=== PATIENT | female | born 1970 | race African-American/Black ===

== ENCOUNTER 2016-10-30 21:42 | Emergency (ER) | payer SELFPAY ==
[~2016-10-30] VITALS: Ht 162.6 cm; Wt 86.2 kg
[2016-10-30] MEDS ORDERED: NKM (21:55)
[2016-10-30 22:01] VITALS: BP 104/87
--- NOTE | 2016-10-30 22:12 | Emergency Room Report ---
History of Present Illness General Chief Complaint: Chest Pain Source: Patient Present Illness HPI This is a 45-year-old female with no past medical history. She presents with left-sided chest pain ongoing for last 2 days. Usually worse at night. Worse with movement. Worse with inspiration. No trauma. No shortness of breath. No diaphoresis. Also complaining of left arm numbness to his been ongoing for the whole day. Pain is 7/10 throbbing achy in nature. No trauma. Not on control. Allergies: Uncoded Allergies: adhesive tapes (Allergy, Unknown, 10/30/16) Patient History Past Medical History: see triage record, old chart reviewed Past Surgical History: none Pertinent Family History: none Social History: Denies: smoking Last Menstrual Period: 2 weeks ago Now: No Immunizations: other Reviewed Nursing Documentation: PMH: Agreed, PSxH: Agreed Nursing Documentation-PMH Past Medical History: No Stated History Review of Systems Eye: Denies: blurred vision, eye pain ENT: Denies: ear pain, nose congestion, throat swelling Respiratory: Denies: cough, shortness of breath Cardiovascular: Reports: chest pain, Denies: palpitations Gastrointestinal: Denies: abdominal pain, diarrhea, nausea, vomiting Musculoskeletal: Denies: back pain, joint pain Skin: Denies: rash Neurological: Denies: headache, numbness Endocrine: Denies: increased thirst, increased urine Hematologic/Lymphatic: Denies: easy bruising All Other Systems: negative except mentioned in HPI Physical Exam Vital Signs Date Time Temp Pulse Resp B/P Pulse Ox O2 Delivery O2 Flow Rate FiO2 10/30/16 21:52 98.1 92 20 104/87 97 Room Air vitals normal Medical Decision Making Diagnostic Impression: Primary Impression: Chest pain Qualified Codes: R07.9 - Chest pain, unspecified Additional Impressions: Costochondral chest pain UTI (urinary tract infection) Qualified Codes: N30.00 - Acute cystitis without hematuria ER Course Patient present with atypical chest pain. Does appear to be more costochondritis type of pain. No evidence of ACS, PE, dissection, pneumonia to name a few. We'll discharge home. EKG Diagnostic Results Rate: normal Rhythm: NSR ST Segments: no acute changes Rhythm Strip Diag. Results EP Interpretation: yes Rate: 92 Rhythm: NSR, no PVC's, no ectopy Chest X-Ray Diagnostic Results EP Interpretation: Yes Findings: no consolidation, no effusion, no pneumothorax, no acute cardiopulmonary disease Number of Views: 1 Last Vital Signs Date Time Temp Pulse Resp B/P Pulse Ox O2 Delivery O2 Flow Rate FiO2 10/30/16 21:52 98.1 92 20 104/87 97 Room Air Status: improved Disposition: HOME, SELF-CARE Condition: Stable Scripts Levofloxacin* (LEVAQUIN*) 500 Mg Tablet 500 MG ORAL DAILY, #7 TAB Prov: JEFF OH M.D. 10/30/16 Ibuprofen* (MOTRIN*) 600 Mg Tablet 600 MG ORAL THREE TIMES A DAY, #30 TAB 0 Refills Prov: JEFF OH M.D. 10/30/16 Additional Instructions: Followup with your Dr. in 7 days. Return if symptom worsen. JEFF OH M.D. Oct 30, 2016 22:12
[2016-10-30] MEDS ORDERED: Ketorolac 30mg Inj IV ONE (22:15)
[2016-10-30 22:23] LABS: BASOPHILS % (AUTO) 2.1 % (0.0-2.0); EOSINOPHILS % (AUTO) 5.9 % (0.0-3.0); LYMPHOCYTES % (AUTO) 41.9 % (20.0-45.0); MEAN CORPUSCULAR HEMOGLOBIN 28.9 PG (27.0-31.0); MEAN CORPUSCULAR HGB CONC 32.5 G/DL (32.0-36.0); MEAN CORPUSCULAR VOLUME 89 FL (80-99); MEAN PLATELET VOLUME 8.5 FL (6.5-10.1); NEUTROPHILS % (AUTO) 41.2 % (45.0-75.0); PLATELET COUNT 276 K/UL (150-450); RED BLOOD COUNT 4.76 M/UL (4.20-5.40); RED CELL DISTRIBUTION WIDTH 12.2 % (11.6-14.8)
[2016-10-30 22:30] LABS: TROPONIN I < 0.30 ng/mL (<=0.30)
[2016-10-30 22:34] LABS: ALANINE AMINOTRANSFERASE 15 U/L (3-33); ALBUMIN/GLOBULIN RATIO 1.2 (1.0-2.7); ANION GAP 12 (5-15); ASPARTATE AMINO TRANSFERASE 15 U/L (5-40); CALCIUM 9.6 mg/dL (8.6-10.2); CARBON DIOXIDE 28 mEQ/L (20-30); CHLORIDE 98 mEQ/L (98-107); CREATININE 0.9 mg/dL (0.5-0.9); GLOMERULAR FILTRATION RATE > 60 mL/min (>60); HEMOLYSIS 5; POTASSIUM 3.9 mEQ/L (3.4-4.9); SODIUM 138 mEQ/L (135-145); TOTAL PROTEIN 7.3 g/dL (6.6-8.7)
[2016-10-30 22:37] LABS: APPEARANCE,URINE CLEAR; KETONES,URINE NEGATIVE (NEGATIVE); LEUKOCYTE ESTERASE ,URINE 3+ (NEGATIVE); NITRITE,URINE NEGATIVE (NEGATIVE); PH,URINE 7 (4.5-8.0); PROTEIN,URINE NEGATIVE (NEGATIVE); UROBILINOGEN,URINE 1 MG/DL (0.0-1.0)
[2016-10-30 22:44] LABS: CKMB < 1.5 ng/mL (< 3.8)
[2016-10-30 22:46] LABS: BACTERIA,URINE MODERATE /HPF; SQUAMOUS EPITHELIAL CELL,UR FEW /LPF (NONE/OCC)
[2016-10-30] MEDS ORDERED: LEVAQUIN500 MG ORAL (22:55)
[2016-10-30] MEDS ORDERED: IBUPROFEN600 MG ORAL (22:55)
[2016-10-30 23:07] VITALS: BP 104/87
== END 2016-10-30 23:07 | disposition home or self-care (01) ==
LOC: EMR 22:13
DX: R07.89 Other chest pain (principal); N39.0 Urinary tract infection, site not specified
CPT/HCPCS: 36415; 71010; 80053; 81003; 81025; 82550; 82553; 84484; 85025; 85379; 87086; 93005; 96374; 99284; J1885

== ENCOUNTER 2017-01-05 17:17 | Emergency (ER) | payer SELFPAY ==
[~2017-01-05] VITALS: Ht 162.6 cm; Wt 90.7 kg
[~2017-01-05 17:17] MED LIST: IBUPROFEN600 MG ORAL; LEVAQUIN500 MG ORAL; NKM
[2017-01-05] MEDS ORDERED: Norco 5mg/325mg tab ORAL ONE (18:15)
[2017-01-05] MEDS ORDERED: IBUPROFEN600 MG ORAL (18:20)
[2017-01-05] MEDS ORDERED: ACETAMINOPHEN-1 EAC1 ORAL (18:20)
[2017-01-05 18:37] VITALS: BP 119/80
[2017-01-05 18:38] VITALS: BP 119/80
--- NOTE | 2017-01-05 21:57 | Emergency Room Report ---
History of Present Illness General Chief Complaint: Pain Source: Patient Present Illness HPI The patient is a 46-year-old female presenting for left-sided rib pain. She was seen in this emergency department for the same complaint recently and had x- rays which were unremarkable. She states that pain decreased with Motrin but then returned yesterday after sneezing. Pain is described as an 8/10 dull ache and does not radiate. Worse with movement and deep breaths. She denies other symptoms including nausea, vomiting, fever, chills, cough, hemoptysis, shortness of breath Allergies: Coded Allergies: No Known Allergies (Unverified , 01/05/17) Patient History Past Medical History: see triage record Pertinent Family History: none Last Menstrual Period: 7-20 Now: No Reviewed Nursing Documentation: PMH: Agreed, PSxH: Agreed Nursing Documentation-PMH Past Medical History: No Stated History Review of Systems All Other Systems: negative except mentioned in HPI Physical Exam Vital Signs Date Time Temp Pulse Resp B/P Pulse Ox O2 Delivery O2 Flow Rate FiO2 01/05/17 17:20 97.7 86 20 119/80 96 Room Air Sp02 EP Interpretation: reviewed, normal General Appearance: no apparent distress, alert, GCS 15, non-toxic Head: normocephalic, atraumatic Eyes: bilateral eye PERRL, bilateral eye normal inspection ENT: hearing grossly normal, normal pharynx, no angioedema, normal voice Neck: full range of motion, supple/symm/no masses Respiratory: chest non-tender, lungs clear, normal breath sounds, no accessory muscle use, speaking full sentences, other - TTP along the L lateral thoracic intercostal muscles Cardiovascular #1: regular rate, rhythm, no edema Musculoskeletal: back normal, gait/station normal, normal range of motion Neurologic: alert, oriented x3, responsive, motor strength/tone normal, sensory intact, speech normal Psychiatric: judgement/insight normal, memory normal, mood/affect normal, no suicidal/homicidal ideation Skin: normal color, no rash, warm/dry, well hydrated Medical Decision Making PA Attestation Dr. Katz is my supervising physician. Patient management was discussed with my supervising physician Diagnostic Impression: Primary Impression: Intercostal muscle strain Qualified Codes: S29.011A - Strain of muscle and tendon of front wall of thorax, initial encounter ER Course The patient is a 46-year-old female presenting for left-sided rib pain. Ddx considered include but not limited to sprain/strain, fracture, contusion, pneumothorax, among others Physical exam: No apparent distress. No respiratory distress Tenderness along the left lateral thoracic intercostal muscles. Symmetric inspiration and expiration.. Lungs are clear to auscultation bilaterally No new imaging is needed as the patient had recent rib series with no new injury The patient is discharged home with a prescription for pain medication and she will follow up with primary doctor. ER precautions given Last Vital Signs Date Time Temp Pulse Resp B/P Pulse Ox O2 Delivery O2 Flow Rate FiO2 01/05/17 18:38 97.7 79 20 119/80 96 Room Air Status: improved Disposition: HOME, SELF-CARE Condition: Improved Scripts Acetaminophen With Codeine (T#3) (TYLENOL #3 TAB*) Y Tab 1 TAB ORAL Q6HR Y for For Pain, #10 TAB Prov: CHERRIE CLAROS 01/05/17 Ibuprofen* (MOTRIN*) 600 Mg Tablet 600 MG ORAL Q8H Y for For Pain, #30 TAB 0 Refills Prov: CHERRIE CLAROS.A. 01/05/17 Referrals: NOT CHOSEN IPA/MD,REFERRING (PCP) Patient Instructions: Muscle Strain Additional Instructions: I discussed my findings with the patient. All questions and concerns have been answered. Treatment and medication compliance have been addressed. I advised the patient that they need to follow up with PMD in 3-5 days. Return to ED if symptoms worsen, new symptoms arise, or if needed for any reason. Patient verbalized understanding of discharge instructions. CHERRIE CLAROS Jan 05, 2017 21:57
== END 2017-01-05 18:38 | disposition home or self-care (01) ==
LOC: EMR 17:38
DX: S29.011A Strain of muscle and tendon of front wall of thorax, initial encounter (principal); X58.XXXA Exposure to other specified factors, initial encounter; Y92.89 Other specified places as the place of occurrence of the external cause
CPT/HCPCS: 99284

== ENCOUNTER 2017-03-16 17:55 | Emergency (ER) | payer SELFPAY ==
[~2017-03-16] VITALS: Ht 162.6 cm; Wt 90.7 kg
[~2017-03-16 17:55] MED LIST changes: +ACETAMINOPHEN-1 EAC1 ORAL
[2017-03-16] MEDS ORDERED: Methocarbamol 750mg tab ORAL ONE (19:45)
[2017-03-16] MEDS ORDERED: Ketorolac 60mg Inj IM ONE (19:45)
[2017-03-16] MEDS ORDERED: IBUPROFEN600 MG ORAL (20:39)
[2017-03-16] MEDS ORDERED: ROBAXIN-750750 MG PO (20:39)
[2017-03-16 20:50] VITALS: BP 142/75
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
== END 2017-03-16 20:50 | disposition home or self-care (01) ==
LOC: EMR 18:46
DX: S16.1XXA Strain of muscle, fascia and tendon at neck level, initial encounter (principal); V43.62XA Car passenger injured in collision with other type car in traffic accident, initial encounter; Y92.410 Unspecified street and highway as the place of occurrence of the external cause
CPT/HCPCS: 99283

== ENCOUNTER 2017-04-09 19:19 | Emergency (ER) | payer BC ==
[~2017-04-09] VITALS: Ht 162.6 cm; Wt 86.2 kg
[~2017-04-09 19:19] MED LIST changes: +ROBAXIN-750750 MG PO
[2017-04-09 20:10] LABS: APPEARANCE,URINE CLEAR; KETONES,URINE NEGATIVE (NEGATIVE); LEUKOCYTE ESTERASE ,URINE 3+ (NEGATIVE); NITRITE,URINE NEGATIVE (NEGATIVE); PH,URINE 5 (4.5-8.0); PROTEIN,URINE NEGATIVE (NEGATIVE); UROBILINOGEN,URINE NORMAL MG/DL (0.0-1.0)
[2017-04-09 20:51] LABS: BACTERIA,URINE MODERATE /HPF; SQUAMOUS EPITHELIAL CELL,UR FEW /LPF (NONE/OCC); TRICHOMONAS,URINE FEW /HPF
[2017-04-09] MEDS ORDERED: METRONIDAZOLE500 MG ORAL (21:03)
[2017-04-09] MEDS ORDERED: Lidocaine 1% MPF 10mg/ml 5ml INJ ONE (21:15)
[2017-04-09] MEDS ORDERED: Azithromycin 250mg tab ORAL ONE (21:15)
--- NOTE | 2017-04-09 21:17 | Emergency Room Report ---
History of Present Illness General Chief Complaint: Vaginal Source: Patient Present Illness HPI The patient is a 46-year-old female presenting for vaginal itching, pain, dysuria, and vaginal discharge since yesterday. Pain of the fourth and burning sensation to the vaginal area and occurs with urination or touch. No radiating pain. Discharge is described as clear to white. No odor. She denies any other symptoms including nausea, vomiting, fever, chills, abdominal pain, back pain Allergies: Coded Allergies: No Known Allergies (Unverified , 01/05/17) Patient History Past Medical History: see triage record Pertinent Family History: none Last Menstrual Period: 2 weeks ago Reviewed Nursing Documentation: PMH: Agreed, PSxH: Agreed Nursing Documentation-PMH Past Medical History: No Stated History Review of Systems All Other Systems: negative except mentioned in HPI Physical Exam Vital Signs Date Time Temp Pulse Resp B/P (MAP) Pulse Ox O2 Delivery O2 Flow Rate FiO2 04/09/17 19:38 98.2 92 16 131/95 95 Room Air Sp02 EP Interpretation: reviewed, normal General Appearance: no apparent distress, alert, GCS 15, non-toxic Head: normocephalic, atraumatic Eyes: bilateral eye normal inspection, bilateral eye PERRL ENT: hearing grossly normal, normal pharynx, no angioedema, normal voice Gastrointestinal: normal bowel sounds, non tender, soft, non-distended, no guarding, no rebound Genitourinary: normal inspection, no CVA tenderness Musculoskeletal: back normal, gait/station normal, normal range of motion, non- tender Neurologic: alert, oriented x3, responsive, motor strength/tone normal, sensory intact, speech normal Psychiatric: judgement/insight normal, memory normal, mood/affect normal, no suicidal/homicidal ideation Skin: normal color, no rash, warm/dry, well hydrated Medical Decision Making PA Attestation Dr. Hobbs is my supervising physician. Patient management was discussed with my supervising physician Diagnostic Impression: Primary Impression: Trichomonal infection ER Course The patient is a 46-year-old female presenting for vaginal itching, pain, dysuria, and vaginal discharge since yesterday. Differential diagnosis considered but not limited to: UTI, BV, yeast infection, pyelonephritis, PID, PE: Vitals WNL. NAD. Abdomen: Normal appearance. Non distended. No ecchymosis. Normal BS.Non tender. No McBurney point tenderness. No guarding. No CVA tenderness Urinalysis has + trich The patient is treated in the ER with azithromycin and Rocephin The patient discharged home with a prescription for flagyl and is given ER precautions. Laboratory Tests Test 04/09/17 19:47 Urine Color Yellow Urine Appearance Clear Urine pH 5 (4.5-8.0) Urine Specific [place]beau 1.025 (1.005-1.035) Urine Protein Negative (NEGATIVE) Urine Glucose (UA) Negative (NEGATIVE) Urine Ketones Negative (NEGATIVE) Urine Occult Blood 1+ (NEGATIVE) H Urine Nitrite Negative (NEGATIVE) Urine Bilirubin Negative (NEGATIVE) Urine Urobilinogen Normal MG/DL (0.0-1.0) Urine Leukocyte Esterase 3+ (NEGATIVE) H Urine RBC 2-4 /HPF (0 - 2) H Urine WBC 5-10 /HPF (0 - 2) H Urine Squamous Epithelial Cells Few /LPF (NONE/OCC) Urine Bacteria Moderate /HPF (NONE) H Urine Trichomonas Few /HPF (NONE) H Urine HCG, Qualitative Negative Lab Results Impression + Trich Last Vital Signs Date Time Temp Pulse Resp B/P (MAP) Pulse Ox O2 Delivery O2 Flow Rate FiO2 04/09/17 19:38 98.2 92 16 131/95 95 Room Air Status: improved Disposition: HOME, SELF-CARE Condition: Improved Scripts Metronidazole* (FLAGYL*) 500 Mg Tablet 500 MG ORAL BID, #14 TAB 0 Refills Prov: CHERRIE CLAROS 04/09/17 Patient Instructions: Vaginitis Additional Instructions: I discussed my findings with the patient. All questions and concerns have been answered. Treatment and medication compliance have been addressed. I advised the patient that they need to follow up with PMD in 3-5 days. Return to ED if symptoms worsen, new symptoms arise, or if needed for any reason. Patient verbalized understanding of discharge instructions. DO NOT CONSUME ALCOHOL WHILE TAKING THE PRESCRIBED MEDICATION CHERRIE CLAROS Apr 09, 2017 21:17
[2017-04-09 21:22] VITALS: BP 131/95
== END 2017-04-09 21:22 | disposition home or self-care (01) ==
LOC: EMR 20:14
DX: A59.01 Trichomonal vulvovaginitis (principal)
CPT/HCPCS: 81003; 81025; 87086; 96372; 99284; J0696